=== PATIENT | male | born 1995 | race Caucasian/White ===

== ENCOUNTER 2022-08-27 07:32 | Emergency (ER) | payer OTHER ==
[2022-08-27] MEDS ORDERED: cefTRIAXone\\ROCEPHIN 2 GM VIAL ONE (08:41)
[2022-08-27 08:42] LABS: #Basophils 0.1 thou/uL (0.0-0.2); #Eosinphils 0.3 thou/uL (0.0-0.7); #Lymphocytes 1.9 thou/uL (1.20-3.40); #Neutrophils 9.3 thou/uL (1.40-6.50); %Basophils 0.7 % (0.0-1.0); %Eosinophils 2.4 % (0.0-10.0); %Lymphocytes 15.2 % (21.0-51.0); %Monocytes 7.6 % (0.0-10.0); %Neutrophils 74.2 % (42.0-75.0); Hemoglobin 15.6 g/dL (14.0-18.0); Mean Corpuscular Hemoglobin 31.9 pg (27.0-31.0); Mean Corpuscular Volume 93.8 fl (78.0-98.0); Mean Platelet Volume 7.9 fL (7.4-10.4); Platelet Count 239 10x3/uL (130-400); RBC Distribution Width 11.7 % (11.5-14.5); White Blood Cell (WBC) Count 12.5 10x3/uL (4.8-10.8)
[2022-08-27] MEDS ORDERED: Sodium Chloride 0.9% 100 ML ONE (08:42)
[2022-08-27 08:52] LABS: ALT (SGPT) 95 U/L (8-55); AST (SGOT) 33 U/L (5-34); Albumin 4.4 g/dL (3.5-5.0); Alkaline Phosphatase 61 U/L (40-110); Anion Gap 14 mmol/L (10-20); BUN (Urea Nitrogen) 10 mg/dL (8.9-20.6); Bilirubin, Total 1.1 mg/dL (0.2-1.2); Calc. Creatinine Clearance 0 mL/min (70-130); Calcium 9.6 mg/dL (7.8-10.44); Carbon Dioxide 24 mmol/L (22-29); Chloride 108 mmol/L (98-107); Estimated GFR 121; Globulin 2.5 g/dL (2.4-3.5); Glucose 83 mg/dL (70-105); Potassium 4.8 mmol/L (3.5-5.1); Protein, Total 6.9 g/dL (6.0-8.3); Sodium 141 mmol/L (136-145)
[2022-08-27] MEDS ORDERED: Iopamidol 370 76% 100 ML VIAL ONE (09:00)
[2022-08-27] MEDS ORDERED: Sulfameth/Trimethoprim DS 800-160mg TAB ONE (09:59)
== END 2022-08-27 10:09 ==
LOC: NAV ERS 07:32
DX: L03.213 Periorbital cellulitis (principal)
CPT/HCPCS: 70481; 80053; 85025; 86140; 87040; 96365; J0696; J3490; Q9967